=== PATIENT | female | born 1960 | race African-American/Black ===

== ENCOUNTER 2021-12-10 07:07 | Day surgery (SDC) | payer OTHER ==
[2021-12-10] MEDS ORDERED: ceFAZolin SODIUM 1 GM VIAL ONE ×3 (07:19→19:02)
[2021-12-10] MEDS ORDERED: VANCOMYCIN 1,000 MG VIAL (RESTRICTED TO ID ONLY) ONE (07:19)
[2021-12-10] MEDS ORDERED: THROMBIN (BOVINE) 5,000 UNIT VIAL TP ONE (07:20)
[2021-12-10] MEDS ORDERED: CELECOXIB 200 MG CAPSULE PO ONE ×2 (08:00→09:30)
[2021-12-10 08:04] VITALS: BMI 31.2
[2021-12-10] MEDS ORDERED: MIDAZOLAM HCL 2 MG/2 ML SINGLE DOSE VIAL ONE ×2 (08:10→09:38)
[2021-12-10] MEDS ORDERED: ROPIVACAINE HCL/PF 100 MG/20 ML VIAL ONE (08:18)
[2021-12-10] MEDS ORDERED: CEFAZOLIN 2 GM in DEXTROSE 5%-WATER - 50 ML IVPB ONE (09:30)
[2021-12-10] MEDS ORDERED: BUPIVACAINE HCL 50 ML ONE (09:32)
[2021-12-10] MEDS ORDERED: SUCCINYLCHOLINE CHLORIDE 200 MG/10 ML SYRINGE ONE (09:38)
[2021-12-10] MEDS ORDERED: PROPOFOL 20 ML ONE ×2 (09:38)
[2021-12-10] MEDS ORDERED: ONDANSETRON 4 MG/2 ML VIAL IVPUSH PRN ×2 (09:52→11:52)
[2021-12-10] MEDS ORDERED: TRANEXAMIC ACID 1000 MG/10 ML VIAL ONE (09:53)
[2021-12-10] MEDS ORDERED: DEXAMETHASONE SOD PHOSPHATE 4 MG/1 ML VIAL ONE (09:53)
[2021-12-10] MEDS ORDERED: TRANEXAMIC ACID 1000 MG/10 ML VIAL IVPUSH ONE (10:00)
[2021-12-10] MEDS ORDERED: BUPIVICAINE 0.25%/MORPH PF/KETOROLAC - 51ML DISP.SYRINGE IA ONE ×3 (10:00→11:20)
[2021-12-10] MEDS ORDERED: LACTATED RINGERS SOLUTION 1,000 ML IV SCH (10:00)
[2021-12-10] MEDS ORDERED: oxyCODONE HCL 5 MG TABLET PO PRN (11:52)
[2021-12-10] MEDS ORDERED: ACETAMINOPHEN 500 MG TABLET (FP) ONE (12:44)
[2021-12-10] MEDS: ACETAMINOPHEN 500 MG TABLET (FP) PO SCH ×2 (12:45→19:06)
[2021-12-10] MEDS: PANTOPRAZOLE 40 MG TABLET PO SCH (14:57)
[2021-12-10] MEDS: lamoTRIgine 100 MG TABLET PO SCH ×3 (15:12→21:14)
[2021-12-10] MEDS: BACLOFEN 10 MG TABLET (FP) PO SCH ×3 (15:12→21:15)
[2021-12-10] MEDS: OXcarbazepine 300 MG TABLET (UD) PO SCH ×3 (15:12→21:16)
[2021-12-10] MEDS ORDERED: DEXTROSE 5%-WATER - 50 ML IVPB ONE (19:02)
[2021-12-10] MEDS: CEFAZOLIN 2 GM in DEXTROSE 5%-WATER - 50 ML IVPB SCH (19:06)
[2021-12-10] MEDS: SENNOSIDES/DOCUSATE COMBO (SENNA PLUS) TABLET (UD) PO SCH (21:15)
[2021-12-10] MEDS: oxyCODONE HCL 5 MG TABLET PO PRN (23:53)
[2021-12-11] MEDS: CEFAZOLIN 2 GM in DEXTROSE 5%-WATER - 50 ML IVPB SCH (02:30)
[2021-12-11] MEDS ORDERED: ceFAZolin SODIUM 1 GM VIAL ONE (03:24)
[2021-12-11] MEDS ORDERED: DEXTROSE 5%-WATER - 50 ML IVPB ONE (03:25)
[2021-12-11] MEDS: oxyCODONE HCL 5 MG TABLET PO PRN (03:30)
[2021-12-11] MEDS: ACETAMINOPHEN 500 MG TABLET (FP) PO SCH ×3 (06:14→11:28)
[2021-12-11] MEDS ORDERED: ASPIRIN 325 MG TABLET PO SCH (08:00)
[2021-12-11 08:25] VITALS: BP 103/64; PULSE 68; TEMP 98.6
[2021-12-11] MEDS ORDERED: MULTIVITAMINS (DAILY MVI) TABLET (FP) PO SCH (10:00)
[2021-12-11] MEDS ORDERED: HYDROCHLOROTHIAZIDE 25 MG TABLET (FP) PO SCH (10:00)
[2021-12-11] MEDS: SENNOSIDES/DOCUSATE COMBO (SENNA PLUS) TABLET (UD) PO SCH (11:27)
[2021-12-11] MEDS: lamoTRIgine 100 MG TABLET PO SCH (11:28)
[2021-12-11] MEDS: PANTOPRAZOLE 40 MG TABLET PO SCH (11:28)
[2021-12-11] MEDS: BACLOFEN 10 MG TABLET (FP) PO SCH (11:28)
== END 2021-12-11 13:25 | disposition home health service (06) ==
LOC: FASUSAT 07:07 → FM/S 13:42 → FASUSAT 12-11 13:25
PROVIDERS: ATTEND Orthopaedic Surgery
PROC: 8E0YXBZ Computer Assisted Procedure of Lower Extremity (ICD-10-PCS; 2021-12-10)
PROC: 8E0Y0CZ Robotic Assisted Procedure of Lower Extremity, Open Approach (ICD-10-PCS; 2021-12-10)
PROC: 0SRD0L9 Replacement of Left Knee Joint with Medial Unicondylar Synthetic Substitute, Cemented, Open Approach (ICD-10-PCS; principal; 2021-12-10 10:05)
DX: M17.12 Unilateral primary osteoarthritis, left knee (principal)
CPT/HCPCS: 20985; 27446; C1776; S2900; 73560-TC-LT-FY; 94760; 97010-GP; 97116-GP; 97162-GP; J0475